=== PATIENT | female | born 1950 | race Caucasian/White ===

== ENCOUNTER 2017-02-10 08:11 | Day surgery (SDC) | payer BC ==
[~2017-02-10 08:11] MED LIST: LIDOCAINE HCL 1% MPF SOL ONE; PROPOFOL 500 MG/50 ML EMU IV ONE
[2017-02-10 09:27] VITALS: RESP 20
[2017-02-10 09:51] VITALS: TEMP 97.1
[2017-02-10 09:57] VITALS: BP 110/58; PULSE 70; O2SAT 97
== END 2017-02-10 10:07 | disposition home or self-care (01) ==
LOC: SURG 08:11
PROVIDERS: ATTEND Surgery
DX: Z12.11 Encounter for screening for malignant neoplasm of colon (principal); Z86.010 Personal history of colon polyps; D12.2 Benign neoplasm of ascending colon; D12.3 Benign neoplasm of transverse colon; K62.1 Rectal polyp
CPT/HCPCS: 45385; 99001; J2001; J2704